=== PATIENT | female | born 1970 | race Caucasian/White ===

== ENCOUNTER → 2018-11-12 12:38 | Outpatient (CLI) | payer OTHER | END | disposition home or self-care (01) | LOC: D.CT 12:38 | PROVIDERS: ATTEND Internal Medicine Gastroenterology | DX: R10.32 Left lower quadrant pain (principal); R19.4 Change in bowel habit ==

== ENCOUNTER 2018-12-04 05:58 | Day surgery (SDC) | payer OTHER ==
[~2018-12-04] VITALS: Ht 162.6 cm; Wt 127.3 kg
--- NOTE | ~2018-12-04 | OP ---
PATIENT NAME: POLY LEWIS MEDICAL RECORD: [id number] :70 LOCATION:D.OPS ADMISSION DATE: SURGEON: KASEY CHANEY DO DATE OF OPERATION: 12/04/2018 PROCEDURE: Colonoscopy with biopsies. INDICATIONS FOR PROCEDURE: Abdominal pain, hematochezia, nausea, irregular bowel habits. SCOPE: Olympus video pediatric colonoscope. MEDICATIONS: The patient was placed under general anesthesia for this procedure due to her history of aspiration and high risk for aspiration. COMPLICATIONS: None. ESTIMATED BLOOD LOSS: Minimal. FINDINGS AND DESCRIPTION OF PROCEDURE: Informed consent was given. The patient was sedated, intubated, and placed on her left side. A digital rectal examination was performed and was normal. The endoscope was then advanced under direct visualization through the rectum to the cecum and terminal ileum. The endoscope was slowly withdrawn and the mucosa was carefully examined. The prep quality was fair. There were no polyps visualized on today's examination. There were no diverticula seen. Retroflexion was performed in the rectum with visualization of grade I internal hemorrhoids. There was also question of some minor papillomatous changes versus slightly hypertrophied anal papilla present on retroflexed view. Cold forceps biopsies were taken of this site to submit for histopathology. Random biopsies were taken throughout the colon to submit for histopathology and to rule out the presence of microscopic colitis. The endoscope was withdrawn from the patient. The patient tolerated the procedure well and there were no complications. IMPRESSIONS: 1. Grade I internal hemorrhoids without bleeding. 2. Questionable papillomatous tissue versus anal papilla, biopsies pending. PLAN AND RECOMMENDATIONS: 1. Discharge home when recovery parameters are met. 2. Follow up biopsy specimen results. 3. High fiber diet. 4. Supplement diet with 1 tablespoon of fiber daily. 5. A prescription will be given for dicyclomine 10 mg to take 1-2 tablets up to 3 times daily as needed for loose stools or abdominal pain and cramping. 6. Recall colonoscopy in 10 years for colon cancer screening purposes. TRANSINT:[id number] Voice Confirmation ID: [id number] DOCUMENT ID: [id number] OPERATIVE REPORT [id number] POLY LEWIS KASEY CHANEY DO CC: [id number] DICTATION DATE: 12/04/18 0857 [facility] [facility]ST[employer]ER: 12/04/18 1116 [facility] 12/04/18 [facility] [address] [place] [address]
[2018-12-04 06:24] LABS: HEMATOCRIT 37.8 % (36.0-48.0); HEMOGLOBIN 12.5 g/dL (12-16); MCH 27.9 pg (26.0-34.0); MCHC 33.1 g/dL (31.0-37.0); MCV 84.4 fL (80.0-100.0); MEAN PLATELET VOLUME 9.3 fL (7.4-10.4); RBC 4.48 10x6/uL (4.00-5.40); WBC 10.3 10x3/uL (4.8-10.8)
[2018-12-04 06:41] LABS: APTT 26.9 SECONDS (22.8-39.4); INR 1.1 (0.85-1.17); PROTIME 13.7 SECONDS (11.6-15.0)
[2018-12-04] MEDS ORDERED: NEURONTIN 300300 MG PO (06:41)
[2018-12-04] MEDS ORDERED: ZOLOFT50 MG PO (06:42)
[2018-12-04] MEDS ORDERED: HYDROCHLOROTHIA25 MG PO (06:42)
[2018-12-04] MEDS ORDERED: COZAAR50 MG PO (06:43)
[2018-12-04] MEDS ORDERED: GLUCOPHAGE1000 MG PO (06:44)
[2018-12-04] MEDS ORDERED: GLUCOTROL 5 MG T5 MG PO (06:44)
[2018-12-04] MEDS ORDERED: PRAVASTATIN SOD10 MG PO (06:44)
[2018-12-04] MEDS ORDERED: IBUPROFEN800 MG PO (06:45)
[2018-12-04] MEDS ORDERED: RANITIDINE HCL150 M1 PO (06:45)
[2018-12-04] MEDS ORDERED: SINGULAIR10 MG PO (06:45)
[2018-12-04 06:48] LABS: ALBUMIN 3.8 g/dL (3.4-5.0); ALKALINE PHOSPHATASE 54 U/L (46-116); ALT (SGPT) 72 U/L (10-68); BILIRUBIN - TOTAL 0.54 mg/dL (0.2-1.3); CALC OSMOLALITY 282 mosm/kg (275-300); CALCIUM 9.2 mg/dL (8.5-10.1); CARBON DIOXIDE 28.8 mmol/L (21.0-32.0); CHLORIDE - SERUM 104 mmol/L (98-107); CREATININE - SERUM 0.8 mg/dL (0.6-1.3); GLUCOSE 191 mg/dL (74-106); POTASSIUM - SERUM 4.1 mmol/L (3.5-5.1); PROTEIN - SERUM 7.8 g/dL (6.4-8.2); SODIUM 140 mmol/L (136-145); UREA NITROGEN 10 mg/dL (7-18); eGFR NON AFRICAN AMERICAN 81 mL/min (90-120)
[2018-12-04 07:05] VITALS: BP 170/70; Ht 162.6 cm; Wt 127.3 kg
[2018-12-04 07:37] LABS: HCG URINE NEGATIVE (NEGATIVE)
== END 2018-12-04 10:36 | disposition home or self-care (01) ==
LOC: D.OPS 05:58
PROVIDERS: Anesthesiology; ATTEND Internal Medicine Gastroenterology
DX: K64.0 First degree hemorrhoids (principal); K52.9 Noninfective gastroenteritis and colitis, unspecified; Z01.812 Encounter for preprocedural laboratory examination

== ENCOUNTER 2018-12-09 05:33 | Day surgery (SDC) | payer OTHER ==
[~2018-12-09] VITALS: Ht 162.6 cm; Wt 127.3 kg
[~2018-12-09 05:33] MED LIST: COZAAR50 MG PO; GLUCOPHAGE1000 MG PO; GLUCOTROL 5 MG T5 MG PO; HYDROCHLOROTHIA25 MG PO; IBUPROFEN800 MG PO; NEURONTIN 300300 MG PO; PRAVASTATIN SOD10 MG PO; RANITIDINE HCL150 M1 PO; SINGULAIR10 MG PO; ZOLOFT50 MG PO
[2018-12-09 06:26] LABS: CALC OSMOLALITY 283 mosm/kg (275-300); CALCIUM 9.7 mg/dL (8.5-10.1); CARBON DIOXIDE 31.1 mmol/L (21.0-32.0); CHLORIDE - SERUM 100 mmol/L (98-107); CREATININE - SERUM 0.8 mg/dL (0.6-1.3); GLUCOSE 164 mg/dL (74-106); POTASSIUM - SERUM 3.7 mmol/L (3.5-5.1); SODIUM 140 mmol/L (136-145); UREA NITROGEN 16 mg/dL (7-18); eGFR NON AFRICAN AMERICAN 81 mL/min (90-120)
[2018-12-09 06:29] LABS: HEMATOCRIT 39.2 % (36.0-48.0); HEMOGLOBIN 13.1 g/dL (12-16); MCH 27.8 pg (26.0-34.0); MCHC 33.4 g/dL (31.0-37.0); MCV 83.2 fL (80.0-100.0); MEAN PLATELET VOLUME 9.3 fL (7.4-10.4); RBC 4.71 10x6/uL (4.00-5.40); RDW 13.6 % (11.5-14.5); WBC 11.4 10x3/uL (4.8-10.8)
[2018-12-09 07:01] VITALS: BP 131/74; Ht 162.6 cm; Wt 127.3 kg
[2018-12-09 07:45] LABS: HCG URINE NEGATIVE (NEGATIVE)
--- NOTE | 2018-12-09 08:32 | NUR ---
0810 DR. CHANEY ROUNDS 0815 WATER AND DIET [facility] [place] SERVED [place] ORDERED.
--- NOTE | 2018-12-09 08:37 | NUR ---
0835 [facility] SERVED
--- NOTE | 2018-12-09 08:58 | NUR ---
0855 IV DC'D WITH CATH INTACT. ATE 80% ADA FL DIET DC INSTS GIVEN VOICED UNDERSTANDING RX GIVEN GETTING DRESSED.
--- NOTE | 2018-12-09 14:47 | OP ---
PATIENT NAME: POLY LEWIS MEDICAL RECORD: [id number] :70 LOCATION:[facility] ADMISSION DATE: SURGEON: KASEY CHANEY DO DATE OF OPERATION: 12/09/2018 PROCEDURE: EGD with biopsies. INDICATIONS FOR PROCEDURE: Epigastric abdominal tenderness, heartburn, left upper quadrant abdominal tenderness, nausea, irregular bowel habits. SCOPE: Olympus video gastroscope. MEDICATIONS: Propofol 300 mg IV per anesthesia. ESTIMATED BLOOD LOSS: Minimal. COMPLICATIONS: None. FINDINGS AND DESCRIPTION OF PROCEDURE: Informed consent was given. The patient was made comfortable with the above medication. After reaching an adequate level of sedation by slow IV push, the patient was placed on her left side. The endoscope was advanced under direct visualization through the mouth to the second portion of the duodenum. The entire esophagus appeared normal. Random cold forceps biopsies were taken from the mid esophagus to rule out the presence of eosinophilic esophagitis. At the GE junction, there were some changes consistent with mild, LA class A reflux-induced esophagitis. Cold forceps biopsies were taken at the GE junction to rule out the presence of Paulino's esophagus. The endoscope was advanced beyond the GE junction into the stomach and retroflexed to view the cardia, where a small sliding hiatal hernia was present. The fundus appeared normal. Throughout the distal body of the stomach as well as the antrum and prepyloric region, there was some erythema and granularity consistent with mild gastritis. Random cold forceps biopsies were taken to submit for histopathology and to rule out the presence of H. pylori. The endoscope was advanced beyond the pylorus into the duodenum, which appeared normal down to the second portion. Random cold forceps biopsies were taken to submit for histopathology. The endoscope was withdrawn from the patient. The patient tolerated the procedure well and there were no complications. IMPRESSIONS: 1. LA class A reflux-induced esophagitis. 2. Small sliding hiatal hernia. 3. Mild gastritis of the distal stomach. PLAN AND RECOMMENDATIONS: 1. Discharge home when recovery parameters are met. 2. Follow up biopsy specimen results. 3. We will give a prescription for omeprazole 40 mg daily times 60 days to see if this helps symptoms. After that time, the patient can return to use of ranitidine 150 mg daily. 4. Gastric emptying scan to rule out gastroparesis. 5. Follow up in GI clinic in 3 weeks to follow up on symptoms and determine if further workup is warranted. TRANSINT:[id number] Voice Confirmation ID: [id number] DOCUMENT ID: [id number] OPERATIVE REPORT [id number] POLY LEWIS NATHAN A DO at 1447 CC: [id number] DICTATION DATE: 12/09/18802 COMPLIANCE ADVISOR: 12/09/18 0832 [facility] 12/09/18 [place] [address] [place] [address]
== END 2018-12-09 09:07 | disposition home or self-care (01) ==
LOC: D.OPS 05:33
PROVIDERS: Anesthesiology; ATTEND Internal Medicine Gastroenterology
DX: K21.0 Gastro-esophageal reflux disease with esophagitis (principal); K44.9 Diaphragmatic hernia without obstruction or gangrene; K29.50 Unspecified chronic gastritis without bleeding; Z01.812 Encounter for preprocedural laboratory examination